=== PATIENT | female | born 1975 | race American Indian/Alaskan Native ===

== ENCOUNTER 2018-08-15 18:14 | Emergency (ER) | payer OTHER ==
[2018-08-15 18:16] VITALS: BMI 28.3
[2018-08-15 18:17] VITALS: TEMP 98.3; O2SAT 100
--- NOTE | 2018-08-15 18:49 | ED PDOC ---
Arrival/HPI - General Chief Complaint: Syncope Historian: Patient - History of Present Illness Narrative History of Present Illness (Text): 08/15/18 18:49 43 year old female, with no significant past medical history, who presents to the emergency department brought in by EMS for rapid response for syncope earlier today. Patient reports she was running from her car to class when she felt dizzy and after had LOC. She endorses she had a cervical collar placed prior to arrival. Patient reports similar experience 1 year ago, and states she was evaluated and discharged. Patient is a poor historian. Time/Duration: Prior to Arrival Symptom Onset: Sudden Symptom Course: Unchanged Activities at Onset: Light Context: Walking Past Medical History - Provider Review Nursing Documentation Reviewed: Yes - Psychiatric Hx Substance Use: No Family/Social History - Physician Review Nursing Documentation Reviewed: Yes Family/Social History: Unknown Family HX Smoking Status: Unknown If Ever Smoked Hx Alcohol Use: No Hx Substance Use: No Allergies/Home Meds Allergies/Adverse Reactions: Allergies No Known Allergies Allergy (Verified 08/15/18 18:18) Review of Systems - Physician Review All systems were reviewed & negative as marked: Yes - Review of Systems Constitutional: absent: Fevers Respiratory: absent: SOB, Cough Cardiovascular: absent: Chest Pain Gastrointestinal: absent: Abdominal Pain, Nausea, Vomiting Musculoskeletal: absent: Back Pain, Neck Pain Neurological: Dizziness. absent: Headache Endocrine: absent: Diaphoresis Physical Exam Vital Signs Reviewed: Yes Vital Signs Temp Pulse Resp BP Pulse Ox 08/15/18 18:16 98.3 F 93 H 18 107/81 100 Temperature: Afebrile Blood Pressure: Normal Pulse: Regular Respiratory Rate: Normal Appearance: Positive for: Well-Appearing, Non-Toxic, Comfortable Pain Distress: None Mental Status: Positive for: Alert and Oriented X 3 Finger Stick Blood Glucose: 92 - Systems Exam Head: Present: Atraumatic, Normocephalic Pupils: Present: PERRL Extroacular Muscles: Present: EOMI Conjunctiva: Present: Normal Mouth: Present: Moist Mucous Membranes Neck: Present: Other (Cervical collar in place. diffused tenderness ) Respiratory/Chest: Present: Clear to Auscultation, Good Air Exchange, Other (Diffused tenderness to chest wall). No: Respiratory Distress, Accessory Muscle Use Cardiovascular: Present: Regular Rate and Rhythm, Normal S1, S2. No: Murmurs Abdomen: No: Tenderness, Distention, Peritoneal Signs Back: Present: Normal Inspection Upper Extremity: Present: Normal Inspection. No: Cyanosis, Edema Lower Extremity: Present: Normal Inspection. No: Edema Neurological: Present: GCS=15, Speech Normal Skin: Present: Warm, Dry, Normal Color. No: Rashes Psychiatric: Present: Alert, Oriented x 3, Normal Insight, Normal Concentration Medical Decision Making ED Course and Treatment: 08/15/18 18:48 Impression: 43 year old male presents to the emergency department brought in by EMS s/p syncopal episode Differential Diagnosis included but are not limited to: Plan: -- CT spine -- CT head -- EKG -- Labs -- Chest X-ray -- Urinalysis -- Urine culture -- Urine test -- Reassess and disposition Prior Visits: Notes and results from previous visits were reviewed. Progress Notes: 08/15/18 19:10 EKG reviewed by me, shows: Normal sinus rhythm at 82, normal axis and intervals. - Scribe Statement The provider has reviewed the documentation as recorded by the Scribthom Stern All medical record entries made by the Scribe were at my direction and personally dictated by me. I have reviewed the chart and agree that the record accurately reflects my personal performance of the history, physical exam, medical decision making, and the department course for this patient. I have also personally directed, reviewed, and agree with the discharge instructions and disposition. Disposition/Present on Arrival - Present on Arrival Any Indicators Present on Arrival: No History of DVT/PE: No History of Uncontrolled Diabetes: No Urinary Catheter: No History of Decub. Ulcer: No History Surgical Site Infection Following: None - Disposition Have Diagnosis and Disposition been Completed?: Yes Diagnosis: Syncope, Migraine Disposition: HOME/ ROUTINE Disposition Time: 19:00 Condition: IMPROVED Discharge Instructions (ExitCare): Syncope (Fainting), Migraine Headache (DC) Additional Instructions: CIELO HUGHES, thank you for letting us take care of you today. The emergency medical care you received today was directed at your acute symptoms. If you were prescribed any medication, please fill it and take as directed. It may take several days for your symptoms to resolve. Return to the Emergency Department if your symptoms worsen, do not improve, or if you have any other problems. Please contact your doctor in 1-2 days. Bring any paperwork you were given at discharge with you along with any medications you are taking to your follow up visit. Our treatment cannot replace ongoing medical care by a primary care provider outside of the emergency department. Thank you for allowing the [facility] team to be part of your care today. If you had an X-Ray or CT scan: A Radiologist will review the ED reading if any change in treatment is needed we will contact you. If you had a blood, urine, or wound culture: It will take several days for the results, if any change in treatment is needed we will contact you. If you had an STI test: It will take 48 hours for the results. Please call after 1 week if you have not heard back. Referrals: PCP,NO [Primary Care Provider] - Follow up with primary Forms: [employer] (Azeri)
[2018-08-15 19:31] LABS: BASO # 0.01 K/mm3 (0.0-2.0); BASO % 0.2 % (0.0-3.0); EOS % 0.5 % (1.5-5.0); HEMOGLOBIN 12.9 g/dL (12.0-16.0); LYMPH # 1.7 (1.2-3.4); LYMPH % 28.4 % (22.0-35.0); MEAN CORPUSCULAR HGB CONC 33.8 g/dl (31.0-37.0); MEAN PLATELET VOLUME 10.5 fl (7.0-11.0); MONO # 0.4 (0.1-0.6); MONO % 6.3 % (1.0-6.0); RBC 4.6 10^6/uL (3.5-6.1); RED CELL DISTRIBUTION WIDTH 12.8 % (11.5-14.5); WHITE BLOOD COUNT 5.9 10^3/uL (4.5-11.0)
[2018-08-15 19:40] LABS: ALB/GLOB RATIO 1.3 (1.1-1.8); ALBUMIN 4.4 g/dL (3.0-4.8); ALT/SGPT 11 U/L (7-56); AST/SGOT 22 U/L (14-36); BLOOD UREA NITROGEN 10 mg/dL (7-21); CALCIUM 10.3 mg/dL (8.4-10.5); GFR NON-AFRICAN AMERICAN > 60
[2018-08-15 19:51] LABS: TROPONIN I < 0.01 ng/mL
[2018-08-15 19:59] LABS: PH,URINE 6.5 (4.7-8.0); URINE BILIRUBIN NEGATIVE (NEGATIVE); URINE BLOOD TRACE-LYSED (NEGATIVE); URINE GLUCOSE (UA) NEGATIVE (NEGATIVE); URINE LEUKOCYTE ESTERASE NEGATIVE Leu/uL (NEGATIVE); URINE PROTEIN NEGATIVE mg/dL (<30 mg/dL)
[2018-08-15 20:04] LABS: URINE APPEARANCE CLEAR (CLEAR); URINE COLOR YELLOW (YELLOW)
[2018-08-15 20:21] VITALS: RESP 20
[2018-08-15 20:35] LABS: BARBITURATES, UR NEGATIVE (NEGATIVE); BENZODIAZEPINES, UR NEGATIVE (NEGATIVE); OPIATES, UR NEGATIVE (NEGATIVE); PHENCYCLIDINE, UR NEGATIVE (NEGATIVE)
--- NOTE | 2018-08-15 20:52 | ED PDOC ---
Physical Exam Vital Signs Reviewed: Yes Vital Signs Temp Pulse Resp BP Pulse Ox 08/15/18 20:20 75 20 123/79 100 08/15/18 18:16 98.3 F 93 H 18 107/81 100 Temperature: Afebrile Blood Pressure: Normal Pulse: Tachycardic Respiratory Rate: Normal Appearance: Positive for: Well-Appearing Mental Status: Positive for: Alert and Oriented X 3 Finger Stick Blood Glucose: 92 Medical Decision Making ED Course and Treatment: 08/15/18 20:00 Patient case endorsed to me by Dr. Nicholson, patient is a 43 year old female presenting to the emergency complaining of s/p syncopal episode earlier today. Patient is pending imaging studies, reassessment and dispo. 08/15/18 20:46 EXAM: CT Head Without IV contrast. CLINICAL HISTORY: Syncope fall TECHNIQUE: Axial computed tomography images of the head/brain without intravenous contrast. COMPARISON: None provided. FINDINGS: BRAIN: No acute intraparenchymal hemorrhage. No mass lesion. No CT evidence for acute territorial infarct. No midline shift or extra-axial collections. VENTRICLES: No hydrocephalus. ORBITS: The orbits are unremarkable. SINUSES AND MASTOIDS: The paranasal sinuses and mastoid air cells are clear. BONES: No fracture. SOFT TISSUES: Unremarkable. IMPRESSION: No acute intracranial abnormality. Electronically signed on Aug 15, 2018 8:06:31 PM EDT by: Scott Shay M.D., Certified by [facility]BR, Diagnostic Radiology 08/15/18 21:01 Upon re-evaluation, patient states she has a headache to which she was given tylenol. Chest X-ray reviewed by me, shows no acute changes and image was slightly rotated. 08/15/18 21:15 EXAM: CT Cervical Spine Without IV contrast. CLINICAL HISTORY: Syncope fall TECHNIQUE: Axial computed tomography images of the cervical spine without intravenous contrast. Sagittal and coronal reformatted images were generated. COMPARISON: None provided. FINDINGS: ALIGNMENT: Bony alignment is anatomic. DEGENERATIVE CHANGES: No significant canal stenosis or neural foraminal narrowing evident. SOFT TISSUES: The prevertebral soft tissues are within normal limits. BONES: No acute fracture or aggressive appearing osseous lesion. IMPRESSION: No acute cervical spine abnormality. Electronically signed on Aug 15, 2018 8:48:45 PM EDT by: Lucio Stout M.D., ROSELIA Certified By [facility] & [facility] Trained MRI and CT Specialist 08/15/18 21:37 Patient states she is now dizzy and has a "burning sensation" h/a on left side of head. Patient reports, a year ago, she experienced similar symptoms of syncope and similar h/a and was evaluated by a neurologist who diagnosed her w/complex migraine. Tylenol ordered. 08/15/18 22:07 Patient vomited Tylenol medication. IVF, Reglan, Toradol and Benadryl ordered. 08/15/18 23:07 Upon re-evaluation, patient states she is feeling better and is ready to go home. Patient will be ready for discharge. - Lab Interpretations Lab Results: Troponin I < 0.01 ng/mL 08/15/18 19:25 Total Bilirubin 0.3 mg/dL (0.2-1.3) 08/15/18 19:25 AST 22 U/L (14-36) 08/15/18 19:25 ALT 11 U/L (7-56) 08/15/18 19:25 Alkaline Phosphatase 105 U/L (38-126) 08/15/18 19:25 Total Protein 7.8 g/dL (5.8-8.3) 08/15/18 19:25 Albumin 4.4 g/dL (3.0-4.8) 08/15/18 19:25 Globulin 3.4 gm/dL 08/15/18 19:25 Albumin/Globulin Ratio 1.3 (1.1-1.8) 08/15/18 19:25 Urine Color Yellow (YELLOW) 08/15/18 19:39 Urine Appearance Clear (CLEAR) 08/15/18 19:39 Urine pH 6.5 (4.7-8.0) 08/15/18 19:39 Ur Specific [place] 1.020 (1.005-1.035) 08/15/18 19:39 Urine Protein Negative mg/dL (<30 mg/dL) 08/15/18 19:39 Urine Glucose (UA) Negative mg/dL (NEGATIVE) 08/15/18 19:39 Urine Ketones Trace mg/dL (NEGATIVE) H 08/15/18 19:39 Urine Blood Trace-lysed (NEGATIVE) H 08/15/18 19:39 Urine Nitrate Negative (NEGATIVE) 08/15/18 19:39 Urine Bilirubin Negative (NEGATIVE) 08/15/18 19:39 Urine Urobilinogen 1.0 E.U./dL (<1 E.U./dL) H 08/15/18 19:39 Ur Leukocyte Esterase Negative Jaci/uL (NEGATIVE) 08/15/18 19:39 Urine RBC 5 - 10 /hpf (0-2) H 08/15/18 19:39 Urine WBC 2 - 5 /hpf (0-6) 08/15/18 19:39 Ur Epithelial Cells 4 - 5 /hpf (0-5) 08/15/18 19:39 - RAD Interpretation Radiology Orders: 08/15/18 18:58 CERVICAL SPINE W/O CONTRAST [CT] Stat HEAD W/O CONTRAST [CT] Stat CHEST PORTABLE [RAD] Stat Disposition/Present on Arrival - Present on Arrival Any Indicators Present on Arrival: No History of DVT/PE: No History of Uncontrolled Diabetes: No Urinary Catheter: No History of Decub. Ulcer: No History Surgical Site Infection Following: None - Disposition Have Diagnosis and Disposition been Completed?: Yes Diagnosis: Syncope, Migraine Disposition: HOME/ ROUTINE Disposition Time: 23:07 Patient Plan: Discharge Condition: IMPROVED Discharge Instructions (ExitCare): Syncope (Fainting), Migraine Headache (DC) Additional Instructions: CIELO HUGHES, thank you for letting us take care of you today. The emergency medical care you received today was directed at your acute symptoms. If you were prescribed any medication, please fill it and take as directed. It may take several days for your symptoms to resolve. Return to the Emergency Department if your symptoms worsen, do not improve, or if you have any other problems. Please contact your doctor in 1-2 days. Bring any paperwork you were given at discharge with you along with any medications you are taking to your follow up visit. Our treatment cannot replace ongoing medical care by a primary care provider outside of the emergency department. Thank you for allowing the [facility] team to be part of your care today. If you had an X-Ray or CT scan: A Radiologist will review the ED reading if any change in treatment is needed we will contact you. If you had a blood, urine, or wound culture: It will take several days for the results, if any change in treatment is needed we will contact you. If you had an STI test: It will take 48 hours for the results. Please call after 1 week if you have not heard back. Forms: [employer] ([place]ayan)
[2018-08-15] MEDS ORDERED: Sodium Chloride 0.9% 1,000 ML IV STA (22:03)
[2018-08-15] MEDS ORDERED: DiphenhydrAMINE 50 mg/ml Inj IVP STA (22:06)
[2018-08-15] MEDS ORDERED: DiphenhydrAMINE 50 mg/ml Inj ONE (22:12)
[2018-08-15 23:26] VITALS: BP 128/82; PULSE 74
--- NOTE | 2018-08-16 07:46 | CARD ---
APPROVED REPORT Date of service: 08/15/2018 EKG Measurement Heart [id number] <Conclusion> Normal sinus rhythm with sinus arrhythmia Normal ECG
--- NOTE | 2018-08-16 08:45 | RAD ---
Date of service: 08/15/2018 HISTORY: r/o infiltrate COMPARISON: No prior. TECHNIQUE: 1 view obtained. FINDINGS: LUNGS: Diffuse bilateral infiltrate left greater than right. PLEURA: No significant pleural effusion identified, no pneumothorax apparent. CARDIOVASCULAR: No aortic atherosclerotic calcification present. Cardiomegaly.. No pulmonary vascular congestion. OSSEOUS STRUCTURES: No significant abnormalities. VISUALIZED UPPER ABDOMEN: Normal. OTHER FINDINGS: None. IMPRESSION: Diffuse bilateral infiltrates left greater than right.
--- NOTE | 2018-08-16 09:12 | CT ---
Date of service: 08/15/2018 PROCEDURE: CT HEAD WITHOUT CONTRAST. HISTORY: Syncope COMPARISON: None available. TECHNIQUE: Axial computed tomography images were obtained through the head/brain without intravenous contrast. Radiation dose: Total exam DLP = 922.97 mGy-cm. This CT exam was performed using one or more of the following dose reduction techniques: Automated exposure control, adjustment of the mA and/or kV according to patient size, and/or use of iterative reconstruction technique. FINDINGS: HEMORRHAGE: No acute parenchymal, subarachnoid or extra-axial hemorrhage. BRAIN: No mass effect or edema. No atrophy or chronic microvascular ischemic changes. VENTRICLES: No obstructive hydrocephalus. CALVARIUM: Calvarium intact. PARANASAL SINUSES: Unremarkable as visualized. No significant inflammatory changes. MASTOID AIR CELLS: Unremarkable as visualized. No inflammatory changes. OTHER FINDINGS: None. IMPRESSION: No acute intracranial hemorrhage.
--- NOTE | 2018-08-16 11:03 | CT ---
Date of service: 08/15/2018 PROCEDURE: CT Cervical Spine without contrast HISTORY: Status post fall-r/o fx COMPARISON: None available. TECHNIQUE: Axial computed tomography images were obtained of the cervical spine without the use of intravenous contrast. Coronal and sagittal reformatted images were created and reviewed. Radiation dose: Total exam DLP = 430.17 mGy-cm. This CT exam was performed using one or more of the following dose reduction techniques: Automated exposure control, adjustment of the mA and/or kV according to patient size, and/or use of iterative reconstruction technique. FINDINGS: VERTEBRAE: No acute compression-displaced fractures nor retropulsed fragments. Vertebral bodies exhibit normal stature. There is mild straightening of the normal upper cervical lordosis which could be secondary to patient positioning in the gantry however underlying element of muscle spasm may contribute. Vertebral bodies and facets otherwise normally aligned. DISCS/SPINAL CANAL/NEURAL FORAMINA: Disc space heights are relatively maintained. There are no disc herniations nor significant disc bulges. The overall central bony canal and exit foramina appear adequate. PARASPINAL SOFT TISSUES: Unremarkable. OTHER FINDINGS: Lung apices are clear. IMPRESSION: No acute fractures.
== END 2018-08-15 23:25 | disposition home or self-care (01) ==
LOC: ED 18:14
DX: R55 Syncope and collapse (principal); G43.909 Migraine, unspecified, not intractable, without status migrainosus
CPT/HCPCS: 70450; 71045; 72125; 80053; 80324; 80345; 80346; 80349; 80353; 80358; 80361; 81001; 81025; 82550; 83615; 83735; 83992; 84484; 85025; 87086; 93005; 96374; 96375; 99285; J1200; J1885; J2765; J7030